=== PATIENT | female | born 1985 | race African-American/Black ===

== ENCOUNTER 2019-11-24 13:57 | Inpatient (IN) | payer MEDICARE, MEDICAID ==
[~2019-11-24] VITALS: Ht 167.6 cm; Wt 84.8 kg
[2019-11-24] MEDS ORDERED: SODIUM CHLORIDE 0.9% 1,000 ML IVB ONE (14:11)
[2019-11-24] MEDS ORDERED: InsuLIN R (HUMAN) 100 UNITS in SODIUM CHL 0.9% 99 ML IV SCH (14:11)
[2019-11-24] MEDS ORDERED: ONDANSETRON HCL 4 MG/2 ML VIAL IV ONE (14:15)
[2019-11-24] MEDS ORDERED: MORPHINE SULFATE 4 MG/ML SYR/VIAL IV ONE (14:15)
[2019-11-24] MEDS ORDERED: DEXTROSE (50%) 50ML SYRG IV PRN ×2 (14:15→17:15)
[2019-11-24 14:42] LABS: Basophils # (auto) 0.1 10 ^3/uL (0-0.2); Basophils % (auto) 1.1 % (0.0-2.0); Eosinophils # (auto) 0.2 10 ^3/uL (0-0.8); Eosinophils % (auto) 2.6 % (0.0-7.0); Hematocrit 40.2 % (36.0-46.0); Hemoglobin 13.3 g/dL (12.2-16.2); Lymphocytes # (auto) 1.9 10 ^3/uL (0.4-5.4); Lymphocytes % (auto) 29.1 % (10.0-50.0); Mean Corpuscular Hemoglobin 30.1 pg (28.0-32.0); Mean Corpuscular Hgb Conc. 33.2 g/dL (32.0-36.0); Mean Corpuscular Volume 90.8 fL (80.0-100.0); Monocytes # (auto) 0.3 10 ^3/uL (0-1.3); Monocytes % (auto) 4.7 % (0.0-12.0); Neutrophils % (auto) 62.5 % (37.0-80.0); Nucleated Red Blood Cells % 0.1 %; Platelet Count (auto) 218 10^3/uL (140-450); Red Blood Cells 4.43 10^6/uL (4.0-5.20); White Blood Cell 6.5 10^3/uL (4.4-10.8)
[2019-11-24 14:54] LABS: Amphetamine Screen, Urine NEGATIVE (NEGATIVE); Barbiturate Scree,Urine NEGATIVE (NEGATIVE); Benzodiazephine Screen, Urine NEGATIVE (NEGATIVE); Cannabinoid Screen, Urine POSITIVE (NEGATIVE); Cocaine Screen, Urine NEGATIVE (NEGATIVE); Opiate Scree,Urine NEGATIVE (NEGATIVE); Phencyclidine Screen, Urine NEGATIVE (NEGATIVE)
[2019-11-24 14:55] LABS: Urine Bacteria NONE SEEN /hpf (None Seen); Urine Blood Negative /uL (Negative); Urine Specific Gravity 1.031 (1.001-1.035); Urine WBC 1 /hpf (0 - 5)
[2019-11-24 15:00] LABS: Alcohol, Urine < 3.0 mg/dL (0-5)
[2019-11-24 15:02] LABS: Albumin 3.4 g/dL (3.4-5.0); Calcium 8.2 mg/dL (8.5-10.1); Potassium 4.2 mmol/L (3.5-5.1)
[2019-11-24 15:05] LABS: Bilirubin, Total 0.3 mg/dL (0.2-1.0); Total Protein 6.8 g/dL (6.4-8.2)
[2019-11-24] MEDS: ACCU-CHEK COMFORT CURVE STRIP VI SCH ×3 (15:12→22:51)
[2019-11-24 16:05] LABS: BUN/Creatinine Ratio 11.8
[2019-11-24] MEDS ORDERED: ACETAMINOPHEN 500 MG TAB PO PRN (17:15)
[2019-11-24] MEDS ORDERED: ONDANSETRON HCL 4 MG/2 ML VIAL IV PRN (17:15)
[2019-11-24] MEDS ORDERED: HYDROcodone-ACET 5/325MG TAB PO PRN (17:15)
[2019-11-24] MEDS: MORPHINE SULF INJ 2 MG/ML SYRINGE 1ML IV PRN (18:41)
[2019-11-24 20:00] VITALS: BP 115/64
[2019-11-24 21:34] VITALS: BP 118/45
[2019-11-24] MEDS: InsuLIN REG 1unit/0.01ml Soln (100units/ml) SC SCH (22:51)
[2019-11-25] MEDS: MORPHINE SULF INJ 2 MG/ML SYRINGE 1ML IV PRN (00:02)
[2019-11-25 06:14] VITALS: BP 97/54
[2019-11-25 06:16] LABS: Basophils # (auto) 0 10 ^3/uL (0-0.2); Basophils % (auto) 0.6 % (0.0-2.0); Eosinophils # (auto) 0.2 10 ^3/uL (0-0.8); Eosinophils % (auto) 4.4 % (0.0-7.0); Hematocrit 37.9 % (36.0-46.0); Hemoglobin 12.9 g/dL (12.2-16.2); Lymphocytes # (auto) 2.3 10 ^3/uL (0.4-5.4); Lymphocytes % (auto) 42.4 % (10.0-50.0); Mean Corpuscular Hemoglobin 30.7 pg (28.0-32.0); Mean Corpuscular Volume 90.3 fL (80.0-100.0); Monocytes # (auto) 0.4 10 ^3/uL (0-1.3); Monocytes % (auto) 6.6 % (0.0-12.0); Neutrophils # (auto) 2.5 10 ^3/uL (1.6-8.6); Nucleated Red Blood Cells % 0.1 %; Platelet Count (auto) 202 10^3/uL (140-450); White Blood Cell 5.4 10^3/uL (4.4-10.8)
[2019-11-25 06:35] LABS: BUN/Creatinine Ratio 16.3; Potassium 3.9 mmol/L (3.5-5.1)
[2019-11-25] MEDS: ACCU-CHEK COMFORT CURVE STRIP VI SCH ×2 (06:38→11:30)
[2019-11-25] MEDS: InsuLIN REG 1unit/0.01ml Soln (100units/ml) SC SCH ×2 (06:40→11:30)
[2019-11-25 08:05] VITALS: BP 98/63
[2019-11-25 09:00] VITALS: BP 98/63
[2019-11-25 13:00] VITALS: BP 111/74
== END 2019-11-25 13:10 | disposition left against medical advice (07) | DRG 638 ==
LOC: ER 13:57 → EAST 13:58
PROVIDERS: ADMIT Nurse Practitioner Acute Care; ATTEND Internal Medicine Nephrology
DX: E11.65 Type 2 diabetes mellitus with hyperglycemia (principal); E87.1 Hypo-osmolality and hyponatremia; R30.0 Dysuria; E11.40 Type 2 diabetes mellitus with diabetic neuropathy, unspecified; F12.90 Cannabis use, unspecified, uncomplicated; E03.9 Hypothyroidism, unspecified; Z88.0 Allergy status to penicillin; Z88.8 Allergy status to other drugs, medicaments and biological substances; Z53.29 Procedure and treatment not carried out because of patient's decision for other reasons
CPT/HCPCS: 36415; 36600; 76536; 80048; 80053; 80307; 81001; 82010; 82805; 82962; 83036; 83735; 84443; 85025; 87081; 93005; 96361; 96365; 96375; 99291; G0378; J1815; J2405

== ENCOUNTER → 2019-12-03 | Emergency (ER) | payer MEDICARE, MEDICAID ==
[~2019-12-03] VITALS: Ht 165.1 cm; Wt 66.7 kg
[~2019-12-03] MED LIST: SODIUM CHLORIDE 0.9% 1,000 ML IV ONE
[2019-12-03 10:32] VITALS: BP 106/69
[2019-12-03 12:31] LABS: Urine Bacteria FEW /hpf (None Seen); Urine Blood Negative /uL (Negative); Urine Specific Gravity 1.023 (1.001-1.035); Urine WBC 1 /hpf (0 - 5)
== END | disposition left against medical advice (07) ==
LOC: ER 10:10
DX: E11.65 Type 2 diabetes mellitus with hyperglycemia (principal); Z88.0 Allergy status to penicillin; Z98.51 Tubal ligation status
CPT/HCPCS: 81001; 82962

== ENCOUNTER 2020-01-05 08:15 | Emergency (ER) | payer MEDICARE, MEDICAID ==
[~2020-01-05] VITALS: Ht 165.1 cm; Wt 64.4 kg
[2020-01-05 08:29] VITALS: BP 114/72
== END 2020-01-05 08:48 | disposition left against medical advice (07) ==
LOC: ER 08:15
DX: E11.9 Type 2 diabetes mellitus without complications (principal); Z53.21 Procedure and treatment not carried out due to patient leaving prior to being seen by health care provider
CPT/HCPCS: 82962